=== PATIENT | male | born 1980 | race African-American/Black ===

== ENCOUNTER 2020-01-14 10:37 | Emergency (ER) | payer SELFPAY ==
[~2020-01-14] VITALS: Ht 177.8 cm; Wt 107.0 kg
[2020-01-14] MEDS ORDERED: HYDROCHLOROT12.5 M1 PO (11:28)
[2020-01-14] MEDS ORDERED: SEROQUEL100 MG PO (11:28)
[2020-01-14] MEDS ORDERED: COZAAR50 MG PO (11:28)
[2020-01-14] MEDS ORDERED: CLONIDINE0.1 MG PO (11:28)
[2020-01-14] MEDS ORDERED: BUSPIRONE5 MG PO (11:29)
[2020-01-14] MEDS ORDERED: LEXAPRO20 MG PO (11:29)
[2020-01-14] MEDS ORDERED: TRILEPTAL300 M1 PO (11:30)
[2020-01-14] MEDS ORDERED: FLEXERIL5 M1 PO (12:23)
[2020-01-14] MEDS ORDERED: MOTRIN800 MG PO (12:23)
[2020-01-14 12:30] VITALS: BP 149/79
== END 2020-01-14 12:30 | disposition home or self-care (01) | DRG 563 ==
LOC: ED 10:37
DX: S39.012A Strain of muscle, fascia and tendon of lower back, initial encounter (principal); M62.830 Muscle spasm of back; I10 Essential (primary) hypertension; F31.9 Bipolar disorder, unspecified; F17.200 Nicotine dependence, unspecified, uncomplicated; X58.XXXA Exposure to other specified factors, initial encounter